=== PATIENT | male | born 1975 | race Caucasian/White ===

== ENCOUNTER 2023-12-22 11:18 | Emergency (ER) | payer BC, SELFPAY ==
[2023-12-22 11:19] VITALS: BP 159/103
--- NOTE | 2023-12-22 11:39 | ED.GENMED ---
History of Present Illness
General
Chief Complaint: Heart Rate Problem
Time Seen by Provider: 12/22/23 11:37
Travel History
Have you had any contact with someone who has COVID-19?: No
Do you have any symptoms of coronavirus? Fever > 100 degrees, chills, cough, shortness of breath, sore throat, loss of taste or smell, muscle aches, or headache?: No
History of Present Illness
History of Present Illness:
HPI: Patient presents due to palpitations and shortness of breath that started around midnight this past evening. He felt that his symptoms worsen when he laid down flat. Overall he feels somewhat improved currently. He denies any PE risk
factors. He has a history of high blood pressure. He never had any chest pain or pleuritic component. He had a cough earlier that is now progressed into some mucus production but thinks this is coming from his sinuses as opposed to his lungs.
EXAM:
GENERAL: Well appearing in no distress
HEENT: Moist oral mucosa
CARDIOVASCULAR: No murmurs, borderline tachycardic heart rate, regular rhythm, No chest wall tenderness
PULMONARY: No respiratory distress, breath sounds are clear and equal
ABDOMEN: Soft with no peritoneal signs, no tenderness
NEUROLOGIC: Excellent strength all extremities, no coordination deficits
PSYCHIATRIC: Appropriate mental status, normal insight and judgement
EXTREMITIES: Nontender, no edema, moves all extremities equally
SKIN: No rash, no lesions
TIME OF INITIAL ENCOUNTER: 11:30 AM
NUMBER AND COMPLEXITY OF PROBLEMS ADDRESSED AT THE ENCOUNTER
� Chronic conditions affecting care: High blood pressure, ADD
� Acute Exacerbation and/or Progression of Chronic Illness: This is an acute problem
� Differential Diagnosis includes: Dysrhythmia such as A-fib/SVT, electrolyte abnormality, PE
AMOUNT AND/OR COMPLEXITY OF DATA TO BE REVIEWED AND ANALYZED
� I performed an independent evaluation of and my interpretation is:
EKG: Sinus 91, normal axis, no acute ST abnormality, no old to compare
CT:
X-rays: Chest x-ray does not show any clear sign of heart failure or any other concern.
Laboratory Studies: White count and hemoglobin are normal. D-dimer essentially rules out PE. proBNP somewhat elevated 1060.
Other:
� Review of other/old records: No old records available for review
� Clinical information was obtained by an independent historian: I spoke to the at bedside
� Prescriptions/Medications Considered but not given:
� Further testing considered but not performed:
RISK OF COMPLICATIONS AND/OR MORBIDITY OR MORTALITY OF PATIENT MANAGEMENT
� Social determinants of health affecting care: Lives at home
� Discussion with other providers: Given the elevated BNP my notify Dr. Phillips and their office will contact him for follow-up.
� Escalation of care including admission/observation vs risk of discharge considered: The patient had palpitations with some degree of shortness of breath. D-dimer is low. He was borderline tachycardic I did give him IV fluids.
Phy Exam
Physical Exam
Physical Exam:
See HPI
Course
Orders/Labs/Results
Orders:
Orders
12/22/23 11:24
Electrocardiogram (*1) Urgent
Reason for Study: Chest Pain
EKG- Treatment ONCE
12/22/23 11:46
0.9% Sodium Chloride 1000 ml [Nss] 1,000 ml IV BOLUS
12/22/23 11:47
CR Chest - 2 Views Urgent
Comment:
Reason For Exam: sob palpitations
12/22/23 11:49
Basic Metabolic Panel Urgent
Complete Blood Count/With Diff Urgent
D-Dimer Urgent
Magnesium Urgent
NT-proBNP Urgent
TSH Reflex To Free T4 Urgent
Troponin I Urgent
Abnormal Lab Results
12/22/23
11:49
MCH 31.2 H pg
(27.0-31.0)
Immature Gran % 0.6 H %
(0-0.5)
Chloride 108 H mmol/L
(98-107)
BUN 21 H mg/dl
(9-20)
Glucose 107 H mg/dl
(70-99)
12/22/23 11:49
12/22/23 11:49
Vital Signs
Initial and Last Documented VS:
Initial Vital Signs
Temp Pulse Resp BP Pulse Ox
98.3 F 104 20 159/103 97
12/22/23 11:19 12/22/23 11:19 12/22/23 11:19 12/22/23 11:19 12/22/23 11:19
Last Documented Vital Signs
Temp Pulse Resp BP Pulse Ox
98.3 F 81 16 137/94 98
12/22/23 11:19 12/22/23 13:00 12/22/23 13:00 12/22/23 13:00 12/22/23 12:47
*Critical Care Note
Total Time (30-74mins, 75-104mins- exclusive of procedures): Not Applicable
ED Attending Note
-
Portions of this chart may have been created with voice recognition software.� Occasional wrong word or��sound alike� substitutions may have occurred due to the inherent limitations of voice recognition software.
Discharge Plan
Departure
Patient Disposition: Home (Routine Discharge)
Date of Disposition: 12/22/23
Time of Disposition: 13:25
Patient with high blood pressure during this ER visit?: Yes
Discharge Problem:
Palpitations
Instructions: Palpitations (DC), BLOOD PRESSURE
Referrals:
Carlos Phillips, DO [Active] - Follow up in 1 week
Activity Restrictions/Additional Instructions:
Of note, your pro-BNP level was a little higher than expected at 1060. However there is nothing else on your physical exam or x-ray to suggest heart failure. I think would be a good idea for you to follow-up with a local dental treatment coordinator. I will give
you the contact information for a local dental treatment coordinator. Other blood work is normal. There is no sign of blood clot based on the screening test for blood clots called a D-dimer. Cardiac blood work shows no sign of heart attack. Thyroid testing is
normal. Electrolytes are normal.
Interventions
Interventions:
*Risk Screen - Suicide Last Done: 12/22/23 11:19
*General Assessment Last Done: 12/22/23 11:19
*Neglect/Abuse Screening Last Done: 12/22/23 11:19
ED- Cardiac Assessment Last Done: 12/22/23 12:32
ED- Pulmonary Assessment Last Done: 12/22/23 12:32
Discharge Date and Time
Print Language: IRAQI
[2023-12-22 11:54] LABS: % Basophils 0.9 % (0-2); % Eosinophils 3.5 % (0-6); % Immature Granulocytes 0.6 % (0-0.5); % Monocytes 7.1 % (1.7-9.3); % Neutrophils 59.9 % (42.2-75.2); Absolute Basophils 0.1 10^3/uL (0-0.2); Absolute Eosinophils 0.2 10^3/uL (0-0.7); Absolute Lymphocytes 1.8 10^3/uL (1.2-3.4); Absolute Monocytes 0.5 10^3/uL (0.1-0.6); Absolute Neutrophils 3.9 10^3/uL (1.4-6.5); Hematocrit 43.9 % (39.0-52.0); Hemoglobin 15.9 g/dL (13.0-18.0); Mean Corp Hgb Conc. 36.2 g/dL (33.0-37.0); Mean Corpuscular Hgb 31.2 pg (27.0-31.0); Mean Corpuscular Volume 86.2 fL (80.0-94.0); Mean Platelet Volume 8.9 fL (7.4-10.4); Nucleated Red Blood Cells % 0 % (-); Platelet Count 208 10^3/uL (130-400); Red Blood Cell Count 5.09 10^6/uL (4.70-6.10); Red Cell Dist. Width 11.5 % (11.5-14.5); White Blood Cell Count 6.5 10^3/uL (4.8-10.8)
[2023-12-22 12:13] LABS: D-Dimer 0.31 ug/mlFEU (0.00-0.50)
[2023-12-22] MEDS: NSS 1000 IV (12:13)
[2023-12-22 12:19] LABS: Blood Urea Nitrogen 21 mg/dl (9-20); Calcium 9.2 mg/dl (8.4-10.2); Carbon Dioxide 22 mmol/L (22-30); Chloride 108 mmol/L (98-107); Glucose 107 mg/dl (70-99); Potassium 4.1 mmol/L (3.5-5.1); Sodium 136 mmol/L (135-145); eGFR > 60.00
[2023-12-22 12:23] LABS: NT-proBNP 1060 pg/ml; Troponin I < 0.012 ng/ml
[2023-12-22 12:47] VITALS: BP 141/100
[2023-12-22 12:49] LABS: TSH Reflex To Free T4 1.12 uIU/ml (0.47-4.68)
[2023-12-22 13:00] VITALS: BP 137/94
== END 2023-12-22 13:58 | disposition home or self-care (01) ==
LOC: EMR 11:18
PROVIDERS: EMERGENCY PHYSICIAN Emergency Medicine; FAMILY PHYSICIAN Family Medicine
DX: R00.2 Palpitations (principal)
CPT/HCPCS: 99283; 96360; 71046; 80048; 83735; 83880; 84443; 84484; 85025; 85379; 93005

== ENCOUNTER → 2024-01-21 10:59 | Outpatient (REF) | payer OTHER, SELFPAY | LOC: RCS 10:59 | PROVIDERS: ATTENDING PHYSICIAN Internal Medicine Cardiovascular Disease; FAMILY PHYSICIAN Family Medicine | DX: R07.89 Other chest pain (principal) | CPT/HCPCS: 93306 ==

== ENCOUNTER → 2024-01-28 10:09 | Outpatient (REF) | payer OTHER, SELFPAY | LOC: RCS 10:09 | PROVIDERS: ATTENDING PHYSICIAN Internal Medicine Cardiovascular Disease; FAMILY PHYSICIAN Family Medicine | DX: R07.89 Other chest pain (principal) | CPT/HCPCS: 93017; 93350; Q9957 ==